=== PATIENT | female | born 1955 | race African-American/Black ===

== ENCOUNTER 2017-10-03 23:00 | Emergency (ER) | payer MEDICAID ==
[~2017-10-03] VITALS: Ht 162.6 cm; Wt 59.9 kg
[2017-10-03 23:03] VITALS: BP 171/74
== END 2017-10-04 02:18 | disposition left against medical advice (07) ==
LOC: ER 23:00
DX: R06.02 Shortness of breath (principal); Z53.21 Procedure and treatment not carried out due to patient leaving prior to being seen by health care provider

== ENCOUNTER 2017-10-09 21:33 | Emergency (ER) | payer MEDICAID ==
[~2017-10-09] VITALS: Ht 165.1 cm; Wt 55.0 kg
[2017-10-09] MEDS ORDERED: ALBUTEROL (0.083%) 2.5MG/3ML NEB HHN STA (22:59)
[2017-10-09] MEDS ORDERED: METHYLPREDNISOLONE SOD SUCC 125 MG/2 ML VIAL IV STA (22:59)
[2017-10-10 00:20] LABS: HEMATOCRIT. 36.9 % (36.0-48.0); HEMOGLOBIN. 11.9 g/dL (12.0-16.0); MEAN CORPUSCULAR HEMOGLOBIN 28.3 pg (28.0-32.0); MEAN CORPUSCULAR VOLUME 87.5 fL (81.0-99.0); MEAN PLATELET VOLUME 8.5 fl (7.4-10.4); PLATELET 232 x1000/uL (130-400); RED BLOOD CELL COUNT 4.21 mill/uL (4.2-5.4); RED CELL DISTRIBUTION WIDTH 15.7 % (11.6-14.6)
[2017-10-10 00:30] LABS: PROTHROMBIN TIME 10.6 sec (9.4-11.6)
[2017-10-10 00:42] LABS: CARBON DIOXIDE 28 mEq/L (21-32); CHLORIDE 107 mEq/L (98-107)
[2017-10-10 01:45] LABS: PLATELET ESTIMATE NORMAL
[2017-10-10] MEDS ORDERED: METHYLPREDNISOLONE SOD SUCC 125 MG/2 ML VIAL IV NR (02:00)
[2017-10-10] MEDS ORDERED: ALBUTEROL (0.5%) 2.5MG/0.5ML NEB HHN ONE (02:15)
[2017-10-10 02:45] VITALS: BP 122/79
== END 2017-10-10 02:52 | disposition home or self-care (01) ==
LOC: ER 21:33
DX: J44.1 Chronic obstructive pulmonary disease with (acute) exacerbation (principal); F17.290 Nicotine dependence, other tobacco product, uncomplicated; Z88.8 Allergy status to other drugs, medicaments and biological substances
CPT/HCPCS: 36415; 71010; 80053; 85025; 85610; 93005; 94640; 96374; 99285; 99406; J2930; J7611; Z7610

== ENCOUNTER 2024-04-06 16:02 | Inpatient (IN) | payer MEDICARE, MEDICAID ==
[~2024-04-06] VITALS: Ht 162.6 cm; Wt 41.7 kg
[2024-04-06] MEDS: SODIUM CHLORIDE 0.9% 1000ML BAG (SEPSIS BOLUS) IV ONE (16:45)
[2024-04-06] MEDS: PANTOPRAZOLE SODIUM 40 MG/VIAL IV ONE (16:45)
[2024-04-06] MEDS: MIDAZOLAM HCL 2 MG/2 ML VIAL IM ONE (16:59)
[2024-04-06] MEDS: HALOPERIDOL LACTATE 5MG/ML VIAL IM ONE (16:59)
[2024-04-06 17:29] LABS: HEMATOCRIT. 39.4 % (36.0-48.0); HEMOGLOBIN. 12.1 g/dL (12.0-16.0); MEAN CORPUSCULAR HEMOGLOBIN 27.1 pg (28.0-32.0); MEAN CORPUSCULAR HGB CONC 30.7 g/dL (31.0-37.0); MEAN CORPUSCULAR VOLUME 88.4 fL (81.0-99.0); PLATELET 254 x1000/uL (130-400); RED BLOOD CELL COUNT 4.46 mill/uL (4.2-5.4); RED CELL DISTRIBUTION WIDTH 21.2 % (11.6-14.6); WHITE BLOOD COUNT 5.2 x1000/uL (4.5-11.0)
[2024-04-06 17:31] LABS: DIFFERENTIAL COMMENT 1
[2024-04-06 17:41] LABS: CHLORIDE 123 mEq/L (98-107); POTASSIUM 3.2 mEq/L (3.5-5.1)
[2024-04-06 17:42] LABS: CALCIUM 9.9 mg/dL (8.7-10.4); CARBON DIOXIDE 30 mEq/L (21-32); INR 0.9; PROTHROMBIN TIME 10.3 sec (9.6-11.0)
[2024-04-06 17:47] LABS: CREATININE 1.2 mg/dL (0.6-1.0); GLUCOSE 104 mg/dL (70-105); UREA NITROGEN BLOOD 37 mg/dL (9-23)
[2024-04-06 17:48] LABS: LACTIC ACID 2.2 mmol/L (0.4-2.0); TROPONIN I HIGH SENSITIVITY 12 ng/L (3.0-34)
[2024-04-06 17:49] LABS: ALANINE AMINOTRANSFERASE 19 IU/L (10-49); ALBUMIN 3.7 g/dL (3.2-4.8); ASPARTATE AMINOTRANSFERASE 23 IU/L (<34); BILIRUBIN DIRECT 0.1 mg/dL (<=3.0); BILIRUBIN TOTAL 0.3 mg/dL (0.1-1.0)
[2024-04-06 17:50] LABS: PROTEIN TOTAL 6.9 g/dL (6.0-8.3)
[2024-04-06 17:54] LABS: ANISOCYTOSIS 1+; PLATELET ESTIMATE NORMAL
[2024-04-06 17:59] LABS: ETHANOL BLOOD < 10 mg/dL (<10); SODIUM 165 mEq/L (136-145)
[2024-04-06] MEDS ORDERED: HYDROCODONE/ACETAMINOPHEN 5/325MG TABLET PO PRN (22:30)
[2024-04-06] MEDS ORDERED: CLONIDINE 0.1MG TABLET PO PRN (22:30)
[2024-04-06] MEDS ORDERED: ONDANSETRON HCL 4MG/2ML INJ IV PRN (22:30)
[2024-04-06] MEDS ORDERED: ACETAMINOPHEN 325MG TABLET PO PRN (22:30)
[2024-04-06] MEDS: BISACODYL 10MG SUPP PR NR (22:30)
[2024-04-06] MEDS ORDERED: POTASSIUM CHLORIDE 20MEQ TABLET SR PO PRN (22:30)
[2024-04-06] MEDS: DEXTROSE 5% WATER 1,000 ML IV SCH (22:30)
[2024-04-06] MEDS ORDERED: NALOXONE HCL 0.4MG/ML VIAL IV PRN (22:30)
[2024-04-06] MEDS ORDERED: MAGNESIUM/ALUMINUM HYDROXIDE/SIMETHICONE 30ML UDC PO PRN (22:30)
[2024-04-06] MEDS ORDERED: DEXTROSE 50% WATER 50ML SYRINGE IV PRN (22:30)
[2024-04-06 23:54] LABS: HEMATOCRIT 36.4 % (36.0-48.0); MEAN CORPUSCULAR HEMOGLOBIN 27.5 pg (28.0-32.0); MEAN CORPUSCULAR HGB CONC 30.3 g/dL (31.0-37.0); MEAN CORPUSCULAR VOLUME 90.9 fL (81.0-99.0); PLATELET 214 x1000/uL (130-400); RED BLOOD CELL COUNT 4.01 mill/uL (4.2-5.4); RED CELL DISTRIBUTION WIDTH 20.9 % (11.6-14.6); WHITE BLOOD COUNT 6.3 x1000/uL (4.5-11.0)
[2024-04-07] MEDS: KCL 20MEQ/100ML PREMIX 100 ML IV SCH (00:04)
[2024-04-07 01:09] LABS: AMMONIA < 17 uMol/L (<32)
[2024-04-07 02:50] VITALS: BP 127/63; PULSE 58; RESP 19; TEMP 96.8
[2024-04-07] MEDS: INSULIN LISPRO 100 UNITS/ML SUBCUT SCH (05:57)
[2024-04-07] MEDS: BLOOD SUGAR DIAGNOSTIC STRIP TEST SCH (05:57)
[2024-04-07 06:44] LABS: TROPONIN I HIGH SENSITIVITY 20 ng/L (3.0-34)
[2024-04-07 06:47] LABS: T4 FREE 0.85 ng/dL (0.89-1.76)
[2024-04-07 06:48] LABS: CALCIUM 9.3 mg/dL (8.7-10.4); CARBON DIOXIDE 25 mEq/L (21-32); CHLORIDE 123 mEq/L (98-107); THYROID STIMULATING HORMONE 2.03 uIU/mL (0.55-4.78)
[2024-04-07 06:53] LABS: GLUCOSE 158 mg/dL (70-105)
[2024-04-07 06:54] LABS: LDL CHOLESTEROL 51 mg/dL (5-100); TRIGLYCERIDE 142 mg/dL (0-150); UREA NITROGEN BLOOD 23 mg/dL (9-23)
[2024-04-07 06:55] LABS: ALANINE AMINOTRANSFERASE 18 IU/L (10-49); ALBUMIN 3.3 g/dL (3.2-4.8); ASPARTATE AMINOTRANSFERASE 32 IU/L (<34); CHOLESTEROL 150 mg/dL (<200); HDL CHOLESTEROL 55 mg/dL (>65); SODIUM 157 mEq/L (136-145)
[2024-04-07 06:56] LABS: BILIRUBIN TOTAL 0.3 mg/dL (0.1-1.0); HEMATOCRIT. 38.5 % (36.0-48.0); HEMOGLOBIN. 11.7 g/dL (12.0-16.0); MEAN CORPUSCULAR HEMOGLOBIN 27.6 pg (28.0-32.0); MEAN CORPUSCULAR HGB CONC 30.3 g/dL (31.0-37.0); MEAN CORPUSCULAR VOLUME 90.9 fL (81.0-99.0); MEAN PLATELET VOLUME 10.6 fl (7.4-10.4); PHOSPHORUS 1.9 mg/dL (2.5-4.9); PLATELET 186 x1000/uL (130-400); PROTEIN TOTAL 6.1 g/dL (6.0-8.3); RED BLOOD CELL COUNT 4.24 mill/uL (4.2-5.4); RED CELL DISTRIBUTION WIDTH 21.4 % (11.6-14.6); WHITE BLOOD COUNT 6.1 x1000/uL (4.5-11.0)
[2024-04-07 07:03] LABS: BILIRUBIN DIRECT < 0.1 mg/dL (<=3.0)
[2024-04-07 07:14] LABS: DIFFERENTIAL COMMENT 1
[2024-04-07 08:00] VITALS: BP 147/85; PULSE 77; RESP 18; TEMP 97
[2024-04-07] MEDS: ENOXAPARIN 30MG/0.3ML SYR SUBCUT SCH (08:19)
[2024-04-07] MEDS: AMLODIPINE 10MG TABLET PO SCH (10:19)
[2024-04-07 11:00] LABS: CLARITY URINE CLOUDY (CLEAR); COLOR URINE YELLOW (YELLOW); GLUCOSE URINE TRACE (NEGATIVE); KETONES URINE 1+ (NEGATIVE); LEUKOCYTE ESTERASE URINE NEGATIVE (NEGATIVE); NITRITE URINE POSITIVE (NEGATIVE); OCCULT BLOOD URINE TRACE (NEGATIVE); PH URINE 5.5 (4.5-8.0); PROTEIN URINE NEGATIVE (NEGATIVE); SPECIFIC GRAVITY URINE 1.016 (1.005-1.030); UROBILINOGEN URINE 0.2 E.U./dL (0.2-1.0)
[2024-04-07 11:22] LABS: *AMPHETAMINES SCREEN URINE NEGATIVE (NEGATIVE); *BARBITURATES SCREEN URINE NEGATIVE (NEGATIVE); *COCAINE SCREEN URINE NEGATIVE (NEGATIVE)
[2024-04-07 11:23] LABS: ECSTASY MDMA SCREEN URINE NEGATIVE (NEGATIVE); METHADONE URINE SCREEN NEGATIVE (NEGATIVE); OPIATES URINE SCREEN NEGATIVE (NEGATIVE); PHENCYCLIDINE URINE SCREEN NEGATIVE (NEGATIVE)
[2024-04-07 12:00] VITALS: BP 137/55; PULSE 78; RESP 18; TEMP 97.1
[2024-04-07 12:00] LABS: SQUAMOUS EPITHELIAL CELL URINE 1+ /lpf (RARE/1+)
[2024-04-07 12:01] LABS: BACTERIA URINE 4+
[2024-04-07 12:02] LABS: RBC URINE 0-2 /hpf (0-2); WBC URINE 0-2 /hpf (0-2)
[2024-04-07] MEDS: POLYETHYLENE GLYCOL 3350 (17GM) 1 DOSE PACK PO SCH (12:22)
[2024-04-07] MEDS ORDERED: NA PHOS,M-B/NA PHOS,DI-BA ENEMA 118ML PR PRN (12:45)
[2024-04-07 16:00] VITALS: BP 125/89; PULSE 75; RESP 18; TEMP 97.1
[2024-04-07 16:33] LABS: PLATELET ESTIMATE NORMAL
[2024-04-07 16:55] LABS: VITAMIN B12 SERUM > 2000 pg/mL (211-911)
[2024-04-07 18:02] LABS: AMMONIA <10 uMol/L (<32)
[2024-04-07 20:00] VITALS: BP 120/70; PULSE 57; RESP 18; TEMP 97.4
[2024-04-07] MEDS: SENNOSIDES/DOCUSATE SOD 8.6/50MG TABLET PO SCH (20:59)
[2024-04-08] VITALS: BP 135/58; PULSE 60; RESP 19; TEMP 98.2
[2024-04-08 04:00] VITALS: BP 112/68; PULSE 63; RESP 20; TEMP 97.4
[2024-04-08 07:20] LABS: HEMOGLOBIN. 10.4 g/dL (12.0-16.0); MEAN CORPUSCULAR HEMOGLOBIN 27.3 pg (28.0-32.0); MEAN CORPUSCULAR HGB CONC 31.4 g/dL (31.0-37.0); MEAN CORPUSCULAR VOLUME 86.9 fL (81.0-99.0); MEAN PLATELET VOLUME 10.2 fl (7.4-10.4); PLATELET 174 x1000/uL (130-400)
[2024-04-08 07:32] LABS: CHLORIDE 118 mEq/L (98-107); POTASSIUM 3.2 mEq/L (3.5-5.1); SODIUM 153 mEq/L (136-145)
[2024-04-08 07:36] LABS: CARBON DIOXIDE 28 mEq/L (21-32)
[2024-04-08 07:37] LABS: CALCIUM 8.7 mg/dL (8.7-10.4)
[2024-04-08 07:41] LABS: UREA NITROGEN BLOOD 16 mg/dL (9-23)
[2024-04-08 07:42] LABS: CREATININE 0.8 mg/dL (0.6-1.0); GLUCOSE 86 mg/dL (70-105)
[2024-04-08 07:43] LABS: ALANINE AMINOTRANSFERASE 18 IU/L (10-49); ASPARTATE AMINOTRANSFERASE 32 IU/L (<34)
[2024-04-08 07:44] LABS: ALBUMIN 2.9 g/dL (3.2-4.8); BILIRUBIN TOTAL 0.3 mg/dL (0.1-1.0); PHOSPHORUS 1.9 mg/dL (2.5-4.9); PROTEIN TOTAL 5.4 g/dL (6.0-8.3)
[2024-04-08 07:46] LABS: BILIRUBIN DIRECT < 0.1 mg/dL (<=3.0)
[2024-04-08 08:00] VITALS: BP 131/79; PULSE 67; RESP 18; TEMP 96.6
[2024-04-08 08:05] LABS: DIFFERENTIAL COMMENT 1
[2024-04-08] MEDS: KCL 20MEQ/100ML PREMIX 100 ML IV NR (11:07)
[2024-04-08 12:00] VITALS: BP 99/60; PULSE 77; RESP 16; TEMP 97.6
[2024-04-08 13:32] LABS: ALBUMIN 3.1 g/dL (3.2-4.8)
[2024-04-08 13:48] LABS: PREALBUMIN < 5.0 mg/dl (10.0-40.0)
[2024-04-08 16:00] VITALS: BP 113/64; PULSE 63; RESP 18; TEMP 96.8
[2024-04-08 16:54] LABS: ANISOCYTOSIS 2+; PLATELET ESTIMATE NORMAL
[2024-04-08 20:00] VITALS: BP 122/72; PULSE 67; RESP 20; TEMP 97.2
[2024-04-08] MEDS: DEXTROSE 50% WATER 50ML SYRINGE IV PRN (21:36)
[2024-04-09] VITALS: BP 127/83; PULSE 63; RESP 18; TEMP 97.4
[2024-04-09 08:00] VITALS: BP 149/63; PULSE 63; RESP 20; TEMP 97.6
[2024-04-09 12:00] VITALS: BP 135/65; PULSE 68; RESP 18; TEMP 97.3
[2024-04-09 12:29] LABS: HEMATOCRIT. 35.7 % (36.0-48.0); HEMOGLOBIN. 11.2 g/dL (12.0-16.0); MEAN CORPUSCULAR HEMOGLOBIN 27.1 pg (28.0-32.0); MEAN CORPUSCULAR HGB CONC 31.4 g/dL (31.0-37.0); MEAN CORPUSCULAR VOLUME 86.3 fL (81.0-99.0); MEAN PLATELET VOLUME 10.7 fl (7.4-10.4); PLATELET 189 x1000/uL (130-400); RED BLOOD CELL COUNT 4.14 mill/uL (4.2-5.4); RED CELL DISTRIBUTION WIDTH 20.3 % (11.6-14.6); WHITE BLOOD COUNT 3.1 x1000/uL (4.5-11.0)
[2024-04-09 12:31] LABS: CHLORIDE 112 mEq/L (98-107); POTASSIUM 3.3 mEq/L (3.5-5.1); SODIUM 145 mEq/L (136-145)
[2024-04-09 12:32] LABS: CARBON DIOXIDE 28 mEq/L (21-32)
[2024-04-09 12:33] LABS: CALCIUM 8.9 mg/dL (8.7-10.4)
[2024-04-09 12:35] LABS: DIFFERENTIAL COMMENT 1
[2024-04-09 12:37] LABS: CREATININE 0.7 mg/dL (0.6-1.0); GLUCOSE 137 mg/dL (70-105); UREA NITROGEN BLOOD 9 mg/dL (9-23)
[2024-04-09 13:43] VITALS: BP 100/73; PULSE 63; RESP 18; TEMP 98.1
[2024-04-09 16:00] VITALS: BP 133/85; PULSE 63; RESP 18; TEMP 97.6
[2024-04-09 17:17] LABS: ANISOCYTOSIS 2+; NUCLEATED RED BLOOD CELLS 2 /100 WBC; PLATELET ESTIMATE NORMAL
[2024-04-09 20:00] VITALS: BP 132/104; PULSE 72; RESP 18; TEMP 95.5
[2024-04-09] MEDS: ERYTHROMYCIN BASE 0.5% OPHTH OINT 3.5GM LEFTEYE SCH (21:52)
[2024-04-10] VITALS: BP 127/80; PULSE 76; RESP 20; TEMP 97.5
[2024-04-10 04:00] VITALS: BP 133/88; PULSE 69; RESP 18; TEMP 95.7
[2024-04-10 08:00] VITALS: BP 123/72; PULSE 78; RESP 18; TEMP 98.2
[2024-04-10] MEDS: MULTIVITAMINS,THER W-MINERALS TABLET PO SCH (08:44)
[2024-04-10 09:01] LABS: HEMATOCRIT. 35.6 % (36.0-48.0); HEMOGLOBIN. 11.2 g/dL (12.0-16.0); MEAN CORPUSCULAR HEMOGLOBIN 27.1 pg (28.0-32.0); MEAN CORPUSCULAR HGB CONC 31.5 g/dL (31.0-37.0); MEAN PLATELET VOLUME 10.7 fl (7.4-10.4); PLATELET 175 x1000/uL (130-400); RED BLOOD CELL COUNT 4.14 mill/uL (4.2-5.4); RED CELL DISTRIBUTION WIDTH 19.7 % (11.6-14.6); WHITE BLOOD COUNT 4.3 x1000/uL (4.5-11.0)
[2024-04-10 09:58] LABS: DIFFERENTIAL COMMENT 1
[2024-04-10 10:16] LABS: CALCIUM 9.1 mg/dL (8.7-10.4); CARBON DIOXIDE 27 mEq/L (21-32); CHLORIDE 107 mEq/L (98-107); POTASSIUM 3.4 mEq/L (3.5-5.1); SODIUM 142 mEq/L (136-145)
[2024-04-10 10:20] LABS: CREATININE 0.7 mg/dL (0.6-1.0)
[2024-04-10 10:22] LABS: GLUCOSE 95 mg/dL (70-105); UREA NITROGEN BLOOD 10 mg/dL (9-23)
[2024-04-10 12:00] VITALS: BP 157/81; PULSE 66; RESP 18; TEMP 98.7
[2024-04-10] MEDS ORDERED: ERYT1OIN6 LEFTEYE (13:20)
[2024-04-10] MEDS ORDERED: AMLO10TA80 PO (13:20)
[2024-04-10] MEDS ORDERED: MULT-379 MT (13:20)
[2024-04-10] MEDS ORDERED: POLY17PO43 PO (13:20)
[2024-04-10] MEDS: POTASSIUM CHLORIDE 20MEQ TABLET SR PO NR (13:51)
[2024-04-10 16:00] VITALS: BP 130/72; PULSE 116; RESP 18; TEMP 97.6
[2024-04-10 17:03] LABS: ANISOCYTOSIS 1+; PLATELET ESTIMATE NORMAL
[2024-04-10 20:00] VITALS: BP 170/81; PULSE 84; RESP 18; TEMP 96.6
[2024-04-11] VITALS: BP 131/78; PULSE 84; RESP 18; TEMP 97.3
[2024-04-11 04:00] VITALS: BP 128/62; PULSE 75; RESP 18; TEMP 98.2
[2024-04-11 08:00] VITALS: BP 111/90; PULSE 90; RESP 16; TEMP 97.8
[2024-04-11 08:17] LABS: CARBON DIOXIDE 30 mEq/L (21-32); CHLORIDE 106 mEq/L (98-107); POTASSIUM 3.7 mEq/L (3.5-5.1); SODIUM 142 mEq/L (136-145)
[2024-04-11 08:18] LABS: CALCIUM 9.5 mg/dL (8.7-10.4)
[2024-04-11 08:20] LABS: HEMATOCRIT. 36.3 % (36.0-48.0); HEMOGLOBIN. 11.5 g/dL (12.0-16.0); MEAN CORPUSCULAR HEMOGLOBIN 27.2 pg (28.0-32.0); MEAN CORPUSCULAR HGB CONC 31.8 g/dL (31.0-37.0); MEAN CORPUSCULAR VOLUME 85.4 fL (81.0-99.0); RED BLOOD CELL COUNT 4.25 mill/uL (4.2-5.4); RED CELL DISTRIBUTION WIDTH 20.1 % (11.6-14.6); WHITE BLOOD COUNT 4.9 x1000/uL (4.5-11.0)
[2024-04-11 08:23] LABS: CREATININE 0.7 mg/dL (0.6-1.0); GLUCOSE 80 mg/dL (70-105); UREA NITROGEN BLOOD 11 mg/dL (9-23)
[2024-04-11 09:02] LABS: DIFFERENTIAL COMMENT 1
[2024-04-11 11:04] LABS: ANISOCYTOSIS 2+; NUCLEATED RED BLOOD CELLS 4 /100 WBC; PLATELET ESTIMATE NORMAL
[2024-04-11 11:06] LABS: GIANT PLATELETS FEW; MEAN PLATELET VOLUME 10.6 fl (7.4-10.4); PLATELET 172 x1000/uL (130-400)
[2024-04-11 12:00] VITALS: BP 143/76; PULSE 65; RESP 16; TEMP 98.1
[2024-04-11 16:00] VITALS: BP 112/73; PULSE 64; RESP 18; TEMP 97.6
[2024-04-11 20:00] VITALS: BP 156/86; PULSE 72; RESP 16; TEMP 96.7
[2024-04-12] VITALS: BP 122/54; PULSE 78; RESP 16; TEMP 97.1
[2024-04-12 04:00] VITALS: BP 128/52; PULSE 85; RESP 18; TEMP 96.9
[2024-04-12 05:43] LABS: CARBON DIOXIDE 28 mEq/L (21-32); CHLORIDE 104 mEq/L (98-107); POTASSIUM 3.4 mEq/L (3.5-5.1); SODIUM 137 mEq/L (136-145)
[2024-04-12 05:44] LABS: CALCIUM 9.1 mg/dL (8.7-10.4)
[2024-04-12 05:48] LABS: CREATININE 0.7 mg/dL (0.6-1.0); GLUCOSE 84 mg/dL (70-105)
[2024-04-12 05:49] LABS: UREA NITROGEN BLOOD 9 mg/dL (9-23)
[2024-04-12 05:51] LABS: PHOSPHORUS 2.7 mg/dL (2.5-4.9)
[2024-04-12 06:22] LABS: BASOPHILS % 0.2 % (0.0-2.0); EOSINOPHILS % 0.6 % (0.0-5.0); HEMATOCRIT. 34.8 % (36.0-48.0); HEMOGLOBIN. 11.1 g/dL (12.0-16.0); LYMPHOCYTES % 19.8 % (20.0-50.0); MEAN CORPUSCULAR HEMOGLOBIN 27.5 pg (28.0-32.0); MEAN CORPUSCULAR VOLUME 85.9 fL (81.0-99.0); MEAN PLATELET VOLUME 11.8 fl (7.4-10.4); MONOCYTES % 8.6 % (2.0-8.0); NEUTROPHILS % 70.8 % (40.0-76.0); PLATELET 159 x1000/uL (130-400); RED BLOOD CELL COUNT 4.04 mill/uL (4.2-5.4); RED CELL DISTRIBUTION WIDTH 19.6 % (11.6-14.6)
[2024-04-12 07:12] LABS: DIFFERENTIAL COMMENT 1
[2024-04-12 08:00] VITALS: BP 107/70; PULSE 73; RESP 19; TEMP 97.9
[2024-04-12 12:00] VITALS: BP_SYST 107; BP_SYST 136; BP_DIAS 69; BP_DIAS 70; PULSE 73; PULSE 74; RESP 18; RESP 19; TEMP 97.7; TEMP 97.9
[2024-04-12 16:00] VITALS: BP 106/60; PULSE 69; RESP 18; TEMP 97.9
[2024-04-12 16:25] VITALS: BP 110/87; PULSE 87; TEMP 98.5; O2SAT 98
[2024-04-12] MEDS ORDERED: CEFEPIME 2GM IN DEXT 5% 100ML IV SCH (20:00)
[2024-04-12] MEDS ORDERED: CEFEPIME 2GM/100ML 100 ML IV SCH (21:00)
== END 2024-04-12 17:45 | disposition home health service (06) | DRG 91 ==
LOC: ER 16:02 → 5WST 21:14 → 8WST 04-07 03:57 → 6WST 04-08 13:08
PROVIDERS: ADMIT Family Medicine Adult Medicine; ATTEND Family Medicine Adult Medicine
PROC: 4A00X4Z Measurement of Central Nervous Electrical Activity, External Approach (ICD-10-PCS; principal; 2024-04-09)
DX: G92.8 Other toxic encephalopathy (principal); L89.313 Pressure ulcer of right buttock, stage 3; E46 Unspecified protein-calorie malnutrition; E87.0 Hyperosmolality and hypernatremia; N17.9 Acute kidney failure, unspecified; N39.0 Urinary tract infection, site not specified; L03.115 Cellulitis of right lower limb; E87.20 Acidosis, unspecified; R64 Cachexia; E11.649 Type 2 diabetes mellitus with hypoglycemia without coma; F03.90 Unspecified dementia, unspecified severity, without behavioral disturbance, psychotic disturbance, mood disturbance, and anxiety; E11.621 Type 2 diabetes mellitus with foot ulcer; I10 Essential (primary) hypertension; K56.41 Fecal impaction; R62.7 Adult failure to thrive; E87.6 Hypokalemia; D64.9 Anemia, unspecified; L97.519 Non-pressure chronic ulcer of other part of right foot with unspecified severity; J44.89 Other specified chronic obstructive pulmonary disease; Z78.1 Physical restraint status; Z88.6 Allergy status to analgesic agent; Z68.28 Body mass index [BMI] 28.0-28.9, adult
CPT/HCPCS: 36415; 70551; 71045; 73620; 74176; 80048; 80061; 80076; 80305; 80320; 81003; 82040; 82140; 82607; 82746; 82962; 83036; 83605; 83735; 84100; 84134; 84145; 84439; 84443; 84484; 85025; 85027; 87070; 87186; 93005; 93971; 95816; 97161; 99291; C1893; C9113; J0692; J1630; J1650; J1815; J2250; J3480; J7030; J7070; J7120; G0480